=== PATIENT | female | born 1975 ===

== ENCOUNTER 2018-03-04 09:10 | Emergency (ER) | payer MEDICAID ==
[2018-03-04 09:11] VITALS: BMI 26.6
[2018-03-04 09:41] VITALS: BP 118/78; PULSE 69; RESP 18; TEMP 98; O2SAT 100
--- NOTE | 2018-03-04 09:50 | C.PDOC ---
History Of Present Illness 42yo female, with history of anxiety, presents to ED with complaints of left sided chest pain. She denies any associated fever, chills, shortness of breath. Of note, patient has had multiple ED visits with similar complaints, has had cardiac workups done which were all negative. She offers no other medical complaints. PMD: [facility] clinic Time Seen by Provider: 03/04/18 09:42 Chief Complaint (Nursing): Chest Pain History Per: Patient History/Exam Limitations: no limitations Onset/Duration Of Symptoms: Days Current Symptoms Are (Timing): Still Present Past Medical History Reviewed: Historical Data, Nursing Documentation, Vital Signs Vital Signs: Last Vital Signs Temp 98.0 F 03/04/18 09:34 Pulse 69 03/04/18 09:34 Resp 18 03/04/18 09:34 BP 118/78 03/04/18 09:34 Pulse Ox 100 03/04/18 09:50 - Medical History PMH: Anemia, Anxiety, Hypothyroidism Surgical History: No Surg Hx - [facility] Procedures INJECT/INFUSE NEC (11/24/14) Family History: States: No Known Family Hx - Social History Hx Alcohol Use: No Hx Substance Use: No - Immunization History Hx Tetanus Toxoid Vaccination: No Hx Influenza Vaccination: No Hx Pneumococcal Vaccination: No Review Of Systems Except As Marked, All Systems Reviewed And Found Negative. Constitutional: Negative for: Fever, Chills Cardiovascular: Positive for: Chest Pain Respiratory: Negative for: Shortness of Breath Physical Exam - Physical Exam Appears: Non-toxic, No Acute Distress Skin: Normal Color, Warm, Dry Head: Atraumatic, Normacephalic Eye(s): bilateral: Normal Inspection Neck: Normal ROM, Supple Chest: Symmetrical, Tenderness (digitally reproducible tenderness to midclavicular intercostal space, T4/T5 region) Cardiovascular: Rhythm Regular Respiratory: Normal Breath Sounds Extremity: Normal ROM, No Pedal Edema Neurological/Psych: Oriented x3 ED Course And Treatment ECG: Interpreted By Me ECG Rhythm: Sinus Rhythm ECG Interpretation: Normal Rate From EC O2 Sat by Pulse Oximetry: 100 (RA) Pulse Ox Interpretation: Normal Medical Decision Making Medical Decision Making: digitally and positionally reproducable L upper chest discomfort, no rash normal EKG moving babies @ home. 6th ED visit for CP/anxiety, all prior w/u's neg costochondritis. Disposition Doctor Will See Patient In The: Office Counseled Patient/Family Regarding: Studies Performed, Diagnosis - Disposition Referrals: [facility] [Outside] [facility] [Outside] Disposition: HOME/ ROUTINE Disposition Time: 09:50 Condition: GOOD Additional Instructions: continue ice packs and motrin 400 mg every 6 hours as needed If the chest wall discomfort is positionally and digitally reproducable it is NOT cardiac in nature. Follow-up with our outpatient Clinic as needed. Instructions: Costochondritis Forms: [id number] (Indonesian) - Clinical Impression Clinical Impression: Chest wall discomfort - Scribe Statement The provider has reviewed the documentation as recorded by the Scribe (Brandy Davis) Provider Attestation: All medical record entries made by the Scribe were at my direction and personally dictated by me. I have reviewed the chart and agree that the record accurately reflects my personal performance of the history, physical exam, medical decision making, and the department course for this patient. I have also personally directed, reviewed, and agree with the discharge instructions and disposition.
--- NOTE | 2018-03-05 12:28 | CARD ---
APPROVED REPORT EKG Measurement Heart [id number] [place] [id number] <Conclusion> Normal sinus rhythm Normal ECG
== END 2018-03-04 10:10 | disposition home or self-care (01) ==
LOC: C.ER 09:10
DX: R07.89 Other chest pain (principal)